=== PATIENT | female | born 1965 | race Caucasian/White ===

== ENCOUNTER → 2019-07-24 | Outpatient (CLI) | payer OTHER ==
[~2019-07-24] MED LIST: AMOXICILLIN875 MG PO; ATORVASTATIN CA40 MG PO; AZITHROMYCIN500 MG PO; BUSPIRONE HCL10 MG PO; DIABETA 5MG TABL5 MG PO; DUONEB 2.5-0.5 M3 ML INH; GLUCOPHAGE850 MG PO; HYZAAR 50-12.51 TAB PO; LEVAQUIN 500 M500 M2 PO; LISINOPRIL5 MG PO; MAGNESIUM CITR100 MG PO; MEDROL DOSPAK21 TAB PO; MEDROLDOSEPACK PO; NABUMETONE 750750 M1 PO; PREDNISONE 10 M10 M1 PO; PREDNISONE50 MG PO; PROAIR HFA8.5 GM INH; SINGULAIR 10 MG10 M1 PO; TESSALON PERLE100 MG PO; XANAX 0.5 MG0.5 MG; XANAX 0.5 MG0.5 MG PO
== END ==
LOC: M.RAD 08:50
DX: R10.9 Unspecified abdominal pain (principal); R11.0 Nausea; Z88.8 Allergy status to other drugs, medicaments and biological substances

== ENCOUNTER 2019-08-12 18:06 | Emergency (ER) | payer OTHER ==
[~2019-08-12] VITALS: Ht 170.2 cm; Wt 70.3 kg
[~2019-08-12 18:06] MED LIST changes: -AZITHROMYCIN500 MG PO; -BUSPIRONE HCL10 MG PO; -MEDROLDOSEPACK PO; -NABUMETONE 750750 M1 PO; -TESSALON PERLE100 MG PO
[2019-08-12] MEDS ORDERED: BUSPIRONE HCL10 MG PO (18:16)
[2019-08-12 18:35] LABS: ABSOLUTE BASOPHILS 0.1 thou/uL (0.0-0.2); ABSOLUTE LYMPHOCYTES 2.7 thou/uL (0.8-5.3); ABSOLUTE MONOCYTES 0.3 thou/uL (0.0-1.2); ABSOLUTE NEUTROPHILS 5.5 thou/uL (1.6-8.1); BASOPHILS 1.2 %; HEMATOCRIT 41.8 % (37.0-47.0); HEMOGLOBIN 14.1 gm/dL (12.0-15.0); LYMPHOCYTES 31.3 %; MCH 31.8 pg (26.0-34.0); MCHC 33.6 g/dL (28.0-37.0); MCV 94.7 fL (80.0-100.0); MONOCYTES 3.8 %; MPV 8.9 fl. (7.2-11.1); NUCLEATED RBCS 0 /100WBC; PLATELET COUNT* 326 thou/uL (150-400); POLYS 63.7 %; RBC 4.42 mil/uL (4.20-5.00); RDW-CV 13.3 % (10.5-14.5); WBC 8.6 thou/uL (4.0-11.0)
[2019-08-12 18:46] LABS: CALCIUM 9.4 mg/dL (8.5-10.1); CREATININE 0.9 mg/dL (0.6-1.3); POTASSIUM 4.1 mmol/L (3.5-5.1)
[2019-08-12 19:01] LABS: ALBUMIN 3.9 g/dL (3.4-5.0); TOTAL BILIRUBIN 0.1 mg/dL (<0.1-1.0); TOTAL PROTEIN 8.4 g/dL (6.4-8.2)
[2019-08-12] MEDS ORDERED: TESSALON PERLE100 MG PO (19:35)
[2019-08-12] MEDS ORDERED: AZITHROMYCIN500 MG PO (19:35)
[2019-08-12] MEDS ORDERED: MEDROLDOSEPACK PO (19:35)
[2019-08-12 20:04] LABS: INFLUENZA A ANTIGEN Negative (Negative); INFLUENZA B ANTIGEN Negative (Negative)
[2019-08-12] MEDS ORDERED: NABUMETONE 750750 M1 PO (20:22)
[2019-08-12 20:36] VITALS: BP 141/77
--- NOTE | 2019-08-13 09:50 | EKG ---
[place] [address] ELECTROCARDIOGRAM REPORT Name: PATRICIA OCHOA Room: [facility]#: [id number] Admission: 08/12/19 Attend Phys: Discharge: 08/12/19 Date of : 61 Report #: [id number] THIS REPORT FOR: //name// [facility] ED Test Date: 2019-08-12 Test Time: 18:37:43 Pat Name: PATRICIA OCHOA Department: Room: Gender: F [employer]: : 1965 Requested By: Rosita Cm Order Number: [id number] MD: Husam Corey Measurements Intervals [place] Rate: 66 P: 70 ME: 191 QRS: 31 QRSD: 117 T: 35 QT: 446 QTc: 468 Interpretive Statements Sinus rhythm Nonspecific intraventricular conduction delay Borderline T abnormalities, lateral leads Compared to ECG 12/30/2016 07:20:07 no change Electronically Signed On 08-13-2019 9:49:46 CLAY CARMAN by Husam Corey [email or web address] <ELECTRONICALLY SIGNED> By: Husam Corey MD, [facility] 08/13/19 0949 1837 36 Husam Corey MD, FACC /EPI
== END 2019-08-12 20:36 | disposition home or self-care (01) ==
LOC: M.ERS 18:06
PROVIDERS: Nurse Practitioner Family
DX: J21.9 Acute bronchiolitis, unspecified (principal); R07.89 Other chest pain; J45.909 Unspecified asthma, uncomplicated; F17.210 Nicotine dependence, cigarettes, uncomplicated; Z90.710 Acquired absence of both cervix and uterus; Z90.49 Acquired absence of other specified parts of digestive tract; Z88.8 Allergy status to other drugs, medicaments and biological substances

== ENCOUNTER 2021-01-16 18:53 | Emergency (ER) | payer OTHER ==
[~2021-01-16] VITALS: Ht 167.6 cm; Wt 72.6 kg
[~2021-01-16 18:53] MED LIST changes: +AZITHROMYCIN500 MG PO; +BUSPIRONE HCL10 MG PO; +MEDROLDOSEPACK PO; +NABUMETONE 750750 M1 PO; +TESSALON PERLE100 MG PO
[2021-01-16] MEDS ORDERED: SINGULAIR 10 MG10 M1 PO ×2 (19:02→19:03)
[2021-01-16] MEDS ORDERED: LEXAPRO 10 MG T10 M2 PO (19:02)
[2021-01-16] MEDS ORDERED: LOSARTAN-HCTZ1 EAC1 PO ×2 (19:02→19:03)
[2021-01-16 20:20] VITALS: BP 108/80
== END 2021-01-16 20:20 | disposition home or self-care (01) ==
LOC: M.ERS 18:53
DX: S01.01XA Laceration without foreign body of scalp, initial encounter (principal); J45.909 Unspecified asthma, uncomplicated; F17.210 Nicotine dependence, cigarettes, uncomplicated; Z90.710 Acquired absence of both cervix and uterus; Z90.49 Acquired absence of other specified parts of digestive tract; Z88.8 Allergy status to other drugs, medicaments and biological substances; W10.8XXA Fall (on) (from) other stairs and steps, initial encounter; Y93.89 Activity, other specified; Y92.89 Other specified places as the place of occurrence of the external cause; Y99.8 Other external cause status

== ENCOUNTER 2021-03-16 16:44 | Emergency (ER) | payer OTHER ==
[~2021-03-16] VITALS: Ht 167.6 cm; Wt 73.9 kg
[~2021-03-16 16:44] MED LIST changes: +LEXAPRO 10 MG T10 M2 PO; +LOSARTAN-HCTZ1 EAC1 PO
[2021-03-16] MEDS ORDERED: ZPAK PO (17:13)
[2021-03-16] MEDS ORDERED: PREDNISONE 20 M20 MG PO (17:13)
[2021-03-16 17:42] LABS: ABSOLUTE BASOPHILS 0.1 thou/uL (0.0-0.2); ABSOLUTE LYMPHOCYTES 2.5 thou/uL (0.8-5.3); ABSOLUTE MONOCYTES 0.1 thou/uL (0.0-1.2); ABSOLUTE NEUTROPHILS 8.7 thou/uL (1.6-8.1); BASOPHILS 0.5 %; HEMATOCRIT 40.4 % (37.0-47.0); HEMOGLOBIN 13.6 gm/dL (12.0-15.0); LYMPHOCYTES 21.6 %; MCH 32.1 pg (26.0-34.0); MCHC 33.7 g/dL (28.0-37.0); MCV 95.2 fL (80.0-100.0); MONOCYTES 1.2 %; MPV 8.1 fl. (7.2-11.1); NUCLEATED RBCS 0 /100WBC; PLATELET COUNT* 374 thou/uL (150-400); POLYS 76.7 %; RBC 4.24 mil/uL (4.20-5.00); WBC 11.4 thou/uL (4.0-11.0)
[2021-03-16 17:52] LABS: CALCIUM 8.6 mg/dL (8.5-10.1); CREATININE 0.9 mg/dL (0.6-1.3)
[2021-03-16 18:03] LABS: ALBUMIN 4.2 g/dL (3.4-5.0); TOTAL BILIRUBIN 0.2 mg/dL (<0.1-1.0); TOTAL PROTEIN 8.4 g/dL (6.4-8.2)
[2021-03-16] MEDS ORDERED: PREDNISONE 10 M10 MG PO (19:33)
[2021-03-16] MEDS ORDERED: ATIVAN0.5 M1 PO (19:33)
[2021-03-16 19:50] VITALS: BP 129/72
--- NOTE | 2021-03-17 11:50 | EKG ---
[place] [address] ELECTROCARDIOGRAM REPORT Name: PATRICIA OCHOA Room: [facility]#: [id number] Admission: 03/16/21 Attend Phys: Discharge: 03/16/21 Date of : 61 Date of Service: 03/16/211806 Report #: [id number] THIS REPORT FOR: //name// [place] [facility] Test Date: 2021-03-16 Test Time: 18:07:59 Pat Name: PATRICIA OCHOA Department: Room: Gender: Bench [employer]: [place] : 1965 Requested By: Rosita Cm Order Number: [id number] MD: Chris Baca Measurements Intervals [place] Rate: 75 P: 64 [place]: 193 QRS: -4 QRSD: 95 T: 48 QT: 442 QTc: 494 Interpretive Statements Sinus rhythm Borderline T wave abnormalities Compared to ECG 08/12/2019 18:37:43 Intraventricular conduction delay no longer present T-wave abnormality still present Electronically Signed On 03-17-2021 11:49:58 CDT by Chris Baca [email or web address] <ELECTRONICALLY SIGNED> By: Chris Baca MD, FAC 03/17/21 1149 1807 1807 Chris Baca MD, [facility] /EPI
== END 2021-03-16 19:50 | disposition home or self-care (01) ==
LOC: M.ERS 16:44
PROVIDERS: Nurse Practitioner Family
DX: F41.9 Anxiety disorder, unspecified (principal); T38.0X5A Adverse effect of glucocorticoids and synthetic analogues, initial encounter; Z20.822 Contact with and (suspected) exposure to COVID-19; J06.9 Acute upper respiratory infection, unspecified; F17.210 Nicotine dependence, cigarettes, uncomplicated; Z79.899 Other long term (current) drug therapy; Z90.710 Acquired absence of both cervix and uterus; Y92.89 Other specified places as the place of occurrence of the external cause

== ENCOUNTER 2021-09-19 16:25 | Emergency (ER) | payer OTHER ==
[~2021-09-19] VITALS: Ht 170.2 cm; Wt 74.8 kg
[~2021-09-19 16:25] MED LIST changes: +ATIVAN0.5 M1 PO; +PREDNISONE 10 M10 MG PO; +PREDNISONE 20 M20 MG PO; +ZPAK PO
[2021-09-19] MEDS ORDERED: PROAIR HFA8.5 GM INH (16:55)
[2021-09-19 17:30] LABS: INFLUENZA A ANTIGEN Negative (Negative); INFLUENZA B ANTIGEN Negative (Negative)
[2021-09-19 18:12] VITALS: BP 135/77
== END 2021-09-19 18:13 | disposition left against medical advice (07) ==
LOC: M.ERS 16:25
PROVIDERS: Physician Assistant
DX: R06.02 Shortness of breath (principal); Z20.822 Contact with and (suspected) exposure to COVID-19

== ENCOUNTER 2021-11-06 11:17 | Emergency (ER) | payer OTHER ==
[~2021-11-06] VITALS: Ht 170.2 cm; Wt 68.0 kg
[2021-11-06 12:49] VITALS: BP 121/73
== END 2021-11-06 12:52 | disposition left against medical advice (07) ==
LOC: M.ERS 11:17
DX: U07.1 COVID-19 (principal); Z53.21 Procedure and treatment not carried out due to patient leaving prior to being seen by health care provider